=== PATIENT | female | born 1975 | race Caucasian/White ===

== ENCOUNTER 2016-12-26 16:38 | Emergency (ER) | payer OTHER ==
[~2016-12-26] VITALS: Ht 175.3 cm; Wt 101.3 kg
[~2016-12-26 16:38] MED LIST: AMPH20TA2 PO; ATOR-54 PO; CLON1TAB3 PO; INSU1.2I SQ; NRN400 PO; NVLGI SC; ZOLP10TA PO
[2016-12-26 16:54] VITALS: TEMP 36.7; Ht 175.3 cm; Wt 101.3 kg
[2016-12-26] MEDS ORDERED: SODIUM CHLORIDE 0.9% 1000ML 1,000 ML IV STA ×3 (18:18)
[2016-12-26] MEDS ORDERED: ONDANSETRON INJ 2 MG/ML 2 ML VIAL IV STA (18:18)
--- NOTE | 2016-12-26 18:40 | EMERGENCY ROOM VISIT NOTE ---
History Report prepared by Yaritza: Emma Bryant Under the Supervision of: Dr. Jason Yee D.O. First contact with patient: 18:15 Chief Complaint: HYPERGLYCEMIA Stated Complaint: HIGH SUGAR,SEVERE BACK PAIN,PASSED KIDNEY STONE Nursing Triage Summary: pt is insulin dependednt diabetic pt bsbs 684 at home, pt took 25 units of Novolog pt believes has kidney stone, pain on bilateral flanks History of Present Illness The patient is a 41 year old female who presents to the Emergency Room with complaints of improving hyperglycemia starting today. She has a history of diabetes. When she left home to come to the Emergency Room, her blood sugar level was 747. She took 25 units of NovoLog about 3 hours ago with some relief. Her blood sugar level was 548 in triage. She also complains of nausea but denies vomiting. The patient also reports chills but denies any fevers. She woke up last night with chest pain. She denies any history of pain. The patient currently denies any pain. She denies shortness of breath, abdominal pain, or any other complaints. She denies any recent changes in medication. The patient has a history of hysterectomy. She has a family history of heart disease. Her father started having cardiac problems in his 50s. He in his 60s. Source of History: patient Onset: today Position: other (global) Symptom Intensity: 747 blood sugar level at home Quality: other (hyperglycemia) Modifying Factors (Relieving): other (25 units of NovoLog with some relief) Associated Symptoms: + chills, + nausea, No SOB, No abdominal pain, No fevers, No vomiting Review of Systems See HPI for pertinent positives & negatives. A total of 10 systems reviewed and were otherwise negative. Past Medical & Surgical Medical Problems: (1) Anxiety (2) section (3) Diabetes mellitus (4) Kidney disease (5) Kidney stone Family History Cancer Diabetes mellitus Heart disease Hypertension Kidney disease Kidney stones Lung disease Seizures Social History Smoking Status: Current Every Day Smoker Alcohol Use: none Drug Use: none Housing Status: lives with family Occupation Status: unemployed Current/Historical Medications Scheduled Amphetamine-Dextroamphetamine 20MG (Adderall 20MG), 20 MG PO DAILY Atorvastatin (Lipitor), 20 MG PO HS Ciprofloxacin Hcl (Cipro), 500 MG PO BID Clonazepam (Klonopin), 1 MG PO TID Gabapentin (Gabapentin), 800 MG PO TID Insulin Aspart (Novolog), UNITS SQ TIDM Insulin Glargine (Toujeo Solostar), 40 UNITS SQ QPM Metronidazole (Flagyl), 500 MG PO TID Ondasetron Odt (Zofran Odt), 4 MG SL Q6H Zolpidem Tartrate (Ambien), 10 MG PO HS Scheduled PRN Oxycodone Immediate Rel Tab (Roxicodone Ir), 1-2 TAB PO Q4H PRN for Severe Pain Allergies Coded Allergies: Ketorolac Tromethamine (Verified Allergy, Intermediate, hives, 12/26/16) Azithromycin (Verified Allergy, Mild, 12/26/16) Buspirone (Verified Allergy, Mild, 12/26/16) Ciprofloxacin (Verified Allergy, Mild, Hives, 12/26/16) Iodinated Diagnostic Agents (Verified Allergy, Mild, ?, 12/26/16) Penicillins (Verified Allergy, Mild, 12/26/16) Amoxicillin (Verified Allergy, Unknown, HIVES, 12/26/16) BEE STING (Verified Allergy, Unknown, HIVES, 12/26/16) Cefaclor (Verified Allergy, Unknown, HIVES, 12/26/16) Dicyclomine (Verified Allergy, Unknown, hives, 12/26/16) Gabapentin (Verified Allergy, Unknown, Unknown reaction, 12/26/16) Meperidine (Verified Allergy, Unknown, HIVES, 12/26/16) Morphine (Verified Allergy, Unknown, HIVES, 12/26/16) Procaine (Verified Allergy, Unknown, Unknown reaction, 12/26/16) Tramadol (Verified Allergy, Unknown, HIVES, 12/26/16) Uncoded Allergies: TYLENOL WITH CODIENE (Allergy, Mild, 02/02/08) Physical Exam Vital Signs Date Time Temp Pulse Resp B/P Pulse Ox O2 Delivery O2 Flow Rate FiO2 12/26/16 21:52 78 18 108/64 98 12/26/16 20:03 82 20 94 12/26/16 18:45 78 20 104/69 98 Room Air 12/26/16 16:54 36.7 108 20 114/72 95 Room Air Physical Exam GENERAL: Patient is awake, alert, and in no acute distress. Patient is resting comfortably and showing no signs of anxiety EYES: The conjunctivae are clear. The pupils are round and reactive. EARS, NOSE, MOUTH AND THROAT: The nose is without any evidence of any deformity. Mucous membranes are moist tongue is midline NECK: The neck is nontender and supple. RESPIRATORY: Normal respiratory effort is noted there is no evidence of wheezing rhonchi or rales CARDIOVASCULAR: Tachycardic rate but regular rhythm, no definite murmurs noted. GASTROINTESTINAL: The abdomen is soft. Bowel sounds are present in all quadrants. Abdomen is nontender MUSCULOSKELETAL/EXTREMITIES: There is no evidence of gross deformity full range of motion is noted in the hips and shoulders SKIN: There is no obvious evidence of any rash. There are no petechiae, pallor or cyanosis noted. NEUROLOGIC: Patient is awake alert and oriented x3 strength is symmetric patellar reflexes are 2+ bilaterally Medical Decision & Procedures ER Provider Diagnostic Interpretation: X-ray results as stated below per interpretation by me and the radiologist. CHEST 1 VW FRONT-NOT PORTABLE CLINICAL HISTORY: HIGH SUGAR, ABDOMINAL PAIN/GI pain. Nausea. COMPARISON STUDY: 04/20/2016 FINDINGS: The bones soft tissues and hemidiaphragms are normal. The cardiomediastinal silhouette is normal. The lungs are clear. The pulmonary vasculature is normal. IMPRESSION: Negative chest. Electronically signed by: Luis Miguel Lundy M.D. 12/26/2016 7:35 PM Dictated Date/Time: 12/26/2016 7:[address] results as stated below per my review and radiologist interpretation: ABDOMEN AND PELVIS CT WITHOUT CONTRAST CT DOSE: 1077.42 mGycm HISTORY: Flank and abdominal pain flank pain TECHNIQUE: Multiaxial CT images of the abdomen and pelvis were performed without contrast. COMPARISON STUDY: 06/14/2016 FINDINGS: Lung bases are clear. Liver spleen and pancreas are unremarkable. Kidneys are considered negative for calcification or hydronephrosis. Bowel pattern is nonobstructive. The appendix is normal. Findings of mild chronic sigmoid diverticulosis. Minimal infiltrative change of the sigmoid at the juncture with the descending colon raising possibility of minimal superimposed acute diverticular change. No evidence for abscess collection or obstruction. Bladder is midline. Uterus is anteflexed. IMPRESSION: 1. Mild acute proximal sigmoid diverticulitis superimposed upon chronic diverticulosis of the remainder of the sigmoid. 2. No evidence for abscess collection or obstruction. 3. Nonobstructive bowel pattern. 4. Negative urinary tracts. Electronically signed by: Luis Miguel Lundy M.D. 12/26/2016 7:59 PM Dictated Date/Time: 12/26/2016 7:55 PM Laboratory Results 12/26/16 18:50 Red Blood Count 4.72, Mean Corpuscular Volume 85.4, Mean Corpuscular Hemoglobin 29.9, Mean Corpuscular Hemoglobin Concent 35.0, Mean Platelet Volume 9.9, Neutrophils (%) (Auto) 53.7, Lymphocytes (%) (Auto) 37.5, Monocytes (%) (Auto) 6.1, Eosinophils (%) (Auto) 2.4, Basophils (%) (Auto) 0.2, Neutrophils # (Auto) 4.57, Lymphocytes # (Auto) 3.19, Monocytes # (Auto) 0.52, Eosinophils # (Auto) 0.20, Basophils # (Auto) 0.02 12/26/16 18:50 Test 12/26/16 18:45 12/26/16 18:50 12/26/16 19:55 12/26/16 20:05 Urine Color YELLOW Urine Appearance CLEAR (CLEAR) Urine pH 5.0 (4.5-7.5) Urine Specific [place] 1.042 (1.000-1.030) Urine Protein NEG (NEG) Urine Glucose (UA) 3+ (NEG) Urine Ketones NEG (NEG) Urine Occult Blood NEG (NEG) Urine Nitrite NEG (NEG) Urine Bilirubin NEG (NEG) Urine Urobilinogen NEG (NEG) Urine Leukocyte Esterase NEG (NEG) Urine Opiates Screen NEG (NEG) Urine Methadone, Qualitative NEG (NEG) Urine Barbiturates NEG (NEG) Urine Phencyclidine (PCP) Level NEG (NEG) Ur Amphetamine/Methamphetamine NEG (NEG) MDMA (Ecstasy) Screen NEG (NEG) Urine Benzodiazepines Screen POS (NEG) Urine Cocaine Metabolite NEG (NEG) Urine Marijuana (THC) NEG (NEG) White Blood Count 8.51 K/uL (4.8-10.8) Red Blood Count 4.72 M/uL (4.2-5.4) Hemoglobin 14.1 g/dL (12.0-16.0) Hematocrit 40.3 % (37-47) Mean Corpuscular Volume 85.4 fL (80-100) Mean Corpuscular Hemoglobin 29.9 pg (25-34) Mean Corpuscular Hemoglobin Concent 35.0 g/dl (32-36) Platelet Count 276 K/uL (130-400) Mean Platelet Volume 9.9 fL (7.4-10.4) Neutrophils (%) (Auto) 53.7 % Lymphocytes (%) (Auto) 37.5 % Monocytes (%) (Auto) 6.1 % Eosinophils (%) (Auto) 2.4 % Basophils (%) (Auto) 0.2 % Neutrophils # (Auto) 4.57 K/uL (1.4-6.5) Lymphocytes # (Auto) 3.19 K/uL (1.2-3.4) Monocytes # (Auto) 0.52 K/uL (0.11-0.59) Eosinophils # (Auto) 0.20 K/uL (0-0.5) Basophils # (Auto) 0.02 K/uL (0-0.2) RDW Standard Deviation 40.7 fL (36.4-46.3) RDW Coefficient of Variation 13.0 % (11.5-14.5) Immature Granulocyte % (Auto) 0.1 % Immature Granulocyte # (Auto) 0.01 K/uL (0.00-0.02) Anion Gap 8.0 mmol/L (3-11) Est Creatinine Clear Calc Drug Dose 93.8 ml/min Estimated GFR () 81.0 Estimated GFR (Non- 69.9 BUN/Creatinine Ratio 9.9 (10-20) Estimated Average Glucose 246 mg/dl Hemoglobin A1c 10.2 % (4.5-5.6) Calcium Level 9.3 mg/dl (8.5-10.1) Total Bilirubin 0.2 mg/dl (0.2-1) Direct Bilirubin < 0.1 mg/dl (0-0.2) Aspartate Amino Transf (AST/SGOT) 10 U/L (15-37) Alanine Aminotransferase (ALT/SGPT) 17 U/L (12-78) Alkaline Phosphatase 117 U/L (45-117) Troponin I < 0.015 ng/ml (0-0.045) Total Protein 7.2 gm/dl (6.4-8.2) Albumin 3.3 gm/dl (3.4-5.0) Lipase 197 U/L (73-393) Beta-Hydroxybutyric Acid 0.68 mg/dL (0.2-2.81) Bedside Glucose 366 mg/dl (70-90) Venous Blood pH 7.43 (7.36-7.41) Venous Blood Partial Pressure CO2 43 mmHg (38.0-50.0) Venous Blood Partial Pressure O2 56 mmHg Venous Blood HCO3 28 meq/L Venous Blood Oxygen Saturation 89.3 % Venous Blood Base Excess 2.8 mmol/L Laboratory results per my review. Medications Administered Medications (Trade) Dose Ordered Sig/Tremaine Route Start Time Stop Time Status Last Admin Dose Admin Sodium Chloride (Nss 1000ml) 1,000 ml @ 999 mls/hr Q1H1M STAT IV 12/26/16 18:18 12/26/16 19:18 DC 12/26/16 18:54 999 MLS/HR Ondansetron HCl 4 mg 4 mg NOW STAT IV 12/26/16 18:18 12/26/16 18:20 DC 12/26/16 18:54 4 MG Sodium Chloride 1,000 ml @ 999 mls/hr Q1H1M STAT IV 12/26/16 18:18 12/26/16 19:18 DC 12/26/16 18:54 999 MLS/HR Sodium Chloride (Nss 1000ml) 1,000 ml @ 200 mls/hr Q5H STAT IV 12/26/16 18:18 12/26/16 22:09 DC 12/26/16 18:18 200 MLS/HR Metronidazole (Flagyl Tab) 500 mg NOW STAT PO 12/26/16 20:11 12/26/16 20:13 DC 12/26/16 20:30 500 MG Hydromorphone HCl (Dilaudid Inj) 1 mg NOW STAT IV 12/26/16 20:24 12/26/16 20:25 DC 12/26/16 20:30 1 MG Ondansetron HCl (ZOFRAN ODT 4MG Home Pack) 1 homepack UD ONCE PO 12/26/16 21:30 12/26/16 21:31 DC 12/26/16 21:32 1 HOMEPACK Hydromorphone HCl (Dilaudid Inj) 1 mg NOW STAT IV 12/26/16 21:16 12/26/16 21:17 DC 12/26/16 21:32 1 MG ECG Indication: other (Hyperglycemia) Rate (beats per minute): 88 Rhythm: normal sinus Findings: no ectopy, other (No acute ST segment abnormality) Comparison ECG Date: March 16, 2013 Change: no significant change ED Course 1814: The patient was evaluated in room C10. A complete history and physical examination were performed. 1817: Sodium Chloride 1000 ml @ 200 mls/hr IV, Sodium Chloride 1000 ml @ 999 mls /hr IV, Zofran Inj 4 mg IV, Sodium Chloride 1000 ml @ 999 mls/hr IV 2010: Flagyl Tab 500 mg PO 2023: Dilaudid Inj 1 mg IV 2125: Dilaudid Inj 1 mg IV 2129: Ondansetron HCl 1 homepack PO. Upon reevaluation, the patient is feeling better. I discussed the results and treatment plan with her. She verbalized agreement of the treatment plan. She was discharged home. Medical Decision Prior records/ancillary studies reviewed and summarized above. Nursing notes reviewed. The patient's history was concerning for hyperglycemia. Differential diagnosis: Etiologies such as metabolic, infection, hypo/hyperglycemia, electrolyte abnormalities, cardiac sources, intracerebral event, toxicologic, neurologic, as well as others were entertained. The patient is a 41-year-old female who presented to the emergency department for an elevated evaluation of abdominal pain back pain and elevated blood sugar. The patient states that she has had ongoing pain and noted that her blood sugar was out of control. She was treated with IV fluids in the emergency department. She was also treated with IV pain medicine IV antiemetics. I discussed patient's laboratory and radiographic studies with her. She was found have no signs of renal abnormality and did not have signs of ureteral calculi on CT but was found have a question where diverticulitis. She was started on antibiotics in the emergency department. I discussed the patient's laboratory and radiographic studies with her. She was reevaluated multiple times. She was encouraged to follow-up with her primary care physician tomorrow for further evaluation but return to the emergency department immediately if symptoms change worsen or the need arises. Impression Primary Impression: Hyperglycemia Additional Impression: Diverticulitis Scribe Attestation The scribe's documentation has been prepared under my direction and personally reviewed by me in its entirety. I confirm that the note above accurately reflects all work, treatment, procedures, and medical decision making performed by me. Departure Information Dispostion Home / Self-Care Prescriptions Oxycodone Immediate Rel Tab (ROXICODONE IR) 5 Mg Tab 1-2 TAB PO Q4H Y for Severe Pain, #15 TAB Prov: Jason Yee, DO 12/26/16 Ondasetron Odt (ZOFRAN ODT) 4 Mg Tab 4 MG SL Q6H for Nausea, #15 TAB Prov: Jason Yee, DO 12/26/16 Metronidazole (FLAGYL) 500 Mg Tab 500 MG PO TID, #30 TAB Prov: Jason Yee, DO 12/26/16 Ciprofloxacin Hcl (CIPRO) 500 Mg Tab 500 MG PO BID, #20 TAB Prov: Jason Yee, DO 12/26/16 Referrals Driss Watters MD Forms HOME CARE DOCUMENTATION FORM, IMPORTANT VISIT INFORMATION, WORK / SCHOOL INSTRUCTIONS Patient Instructions ED Diverticulitis, ED Hyperglycemia Diabetic, [facility] Additional Instructions Continue all medications as prescribed. Drink plenty clear liquids. Follow-up with your family doctor tomorrow for reevaluation. Problem Qualifiers Additional Impression: Diverticulitis Diverticulitis site: large intestine Diverticulitis bleeding: without bleeding Diverticulitis complication: without perforation or abscess Qualified Codes: K57.32 - Diverticulitis of large intestine without perforation or abscess without bleeding
[2016-12-26 19:07] LABS: BASO % 0.2 %; BASO ABS # 0.02 K/uL (0-0.2); COMPLETE YES; EOS % 2.4 %; HEMATOCRIT 40.3 % (37-47); IG% 0.1 %; LYMPH % 37.5 %; LYMPH ABS # 3.19 K/uL (1.2-3.4); MEAN CELL VOLUME 85.4 fL (80-100); MEAN CORPUSCULAR HEMOGLOBIN 29.9 pg (25-34); MEAN PLATELET VOLUME 9.9 fL (7.4-10.4); MONO % 6.1 %; NEUT % 53.7 %; PLATELET COUNT 276 K/uL (130-400); RED BLOOD COUNT 4.72 M/uL (4.2-5.4); WHITE BLOOD COUNT 8.51 K/uL (4.8-10.8)
[2016-12-26 19:30] LABS: ALKALINE PHOSPHATASE 117 U/L (45-117); ALT/SGPT 17 U/L (12-78); AST/SGOT 10 U/L (15-37); BETA-HYDROXYBUTYRATE 0.68 mg/dL (0.2-2.81); BLOOD UREA NITROGEN 10 mg/dl (7-18); BUN/CREATININE RATIO 9.9 (10-20); CALCIUM 9.3 mg/dl (8.5-10.1); CARBON DIOXIDE 27 mmol/L (21-32); CHLORIDE 99 mmol/L (98-107); GLUCOSE 413 mg/dl (70-99); POTASSIUM 4.3 mmol/L (3.5-5.1); SODIUM 134 mmol/L (136-145)
--- NOTE | 2016-12-26 19:36 | DIAGNOSTIC IMAGING REPORT ---
CHEST 1 VW FRONT-NOT PORTABLE CLINICAL HISTORY: HIGH SUGAR, ABDOMINAL PAIN/GI pain. Nausea. COMPARISON STUDY: 04/20/2016 FINDINGS: The bones soft tissues and hemidiaphragms are normal. The cardiomediastinal silhouette is normal. The lungs are clear. The pulmonary vasculature is normal. IMPRESSION: Negative chest. Electronically signed by: Luis Miguel Lundy M.D. 12/26/2016 7:35 PM Dictated Date/Time: 12/26/2016 7:34 PM
[2016-12-26 19:37] LABS: URINE APPEARANCE CLEAR (CLEAR); URINE BILIRUBIN NEG (NEG); URINE COLOR YELLOW; URINE NITRITE NEG (NEG); URINE SPECIFIC GRAVITY 1.042 (1.000-1.030); UROBILINOGEN NEG (NEG)
[2016-12-26 19:47] LABS: MANUAL MICROSCOPIC REQUIRED? NO; REVIEW REQ? NO
[2016-12-26] MEDS ORDERED: NVLG SQ (19:54)
--- NOTE | 2016-12-26 20:00 | DIAGNOSTIC IMAGING REPORT ---
ABDOMEN AND PELVIS CT WITHOUT CONTRAST CT DOSE: 1077.42 mGycm HISTORY: Flank and abdominal pain flank pain TECHNIQUE: Multiaxial CT images of the abdomen and pelvis were performed without contrast. COMPARISON STUDY: 06/14/2016 FINDINGS: Lung bases are clear. Liver spleen and pancreas are unremarkable. Kidneys are considered negative for calcification or hydronephrosis. Bowel pattern is nonobstructive. The appendix is normal. Findings of mild chronic sigmoid diverticulosis. Minimal infiltrative change of the sigmoid at the juncture with the descending colon raising possibility of minimal superimposed acute diverticular change. No evidence for abscess collection or obstruction. Bladder is midline. Uterus is anteflexed. IMPRESSION: 1. Mild acute proximal sigmoid diverticulitis superimposed upon chronic diverticulosis of the remainder of the sigmoid. 2. No evidence for abscess collection or obstruction. 3. Nonobstructive bowel pattern. 4. Negative urinary tracts. Electronically signed by: Luis Miguel Lundy M.D. 12/26/2016 7:59 PM Dictated Date/Time: 12/26/2016 7:55 PM
[2016-12-26] MEDS ORDERED: METRONIDAZOLE 250 MG TAB PO STA (20:11)
[2016-12-26] MEDS ORDERED: CIPROFLOXACIN 500 MG TAB PO STA (20:11)
[2016-12-26 20:15] LABS: BENZODIAZEPINE, URINE POS (NEG); COCAINE,URINE NEG (NEG); PHENCYCLIDINE, URINE NEG (NEG)
[2016-12-26] MEDS ORDERED: FENTANYL CITRATE INJ 50 MCG/1 ML 2 ML VIAL IV PRN (20:15)
[2016-12-26] MEDS ORDERED: HYDROmorphone INJ 1 MG/ML SYR IV STA ×2 (20:24→21:16)
[2016-12-26 20:30] LABS: VEN BLD GAS O2 SATURATION 89.3 %; VEN BLOOD GAS BASE EXCESS 2.8 mmol/L; VENOUS BLOOD GAS PCO2 43 mmHg (38.0-50.0); VENOUS BLOOD GAS PO2 56 mmHg
[2016-12-26] MEDS ORDERED: METR-162 PO (21:23)
[2016-12-26] MEDS ORDERED: OXYC1TAB3 PO (21:23)
[2016-12-26] MEDS ORDERED: ONDA4TAB10 SL (21:23)
[2016-12-26] MEDS ORDERED: CIPR-255 PO (21:23)
[2016-12-26] MEDS ORDERED: ONDANSETRON HOME PACK 4MG OD TAB PO ONE (21:30)
[2016-12-26 21:52] VITALS: BP 108/64; PULSE 78; O2SAT 98
[2016-12-27 08:02] LABS: ESTIMATED AVERAGE GLUCOSE 246 mg/dl; HA1C FLAG Normal (Normal)
[2016-12-29 10:05] LABS: HYDROXYETHYLFLURAZEPAM CONF NEGATIVE NG/ML (CUTOFF=50); HYDROXYMIDAZOLAM NEGATIVE NG/ML (CUTOFF=50); HYDROXYTRIAZOLAM CONF NEGATIVE NG/ML (CUTOFF=50); TEMAZEPAM CONF NEGATIVE NG/ML (CUTOFF=50)
== END 2016-12-26 21:55 | disposition home or self-care (01) ==
LOC: C.EDB 16:39 → C.EDC 21:55
DX: E11.65 Type 2 diabetes mellitus with hyperglycemia (principal); K57.32 Diverticulitis of large intestine without perforation or abscess without bleeding; Z90.710 Acquired absence of both cervix and uterus; F41.9 Anxiety disorder, unspecified; N28.9 Disorder of kidney and ureter, unspecified; Z87.442 Personal history of urinary calculi; Z83.3 Family history of diabetes mellitus; Z82.49 Family history of ischemic heart disease and other diseases of the circulatory system; Z82.0 Family history of epilepsy and other diseases of the nervous system; F17.210 Nicotine dependence, cigarettes, uncomplicated; Z79.4 Long term (current) use of insulin; Z79.899 Other long term (current) drug therapy

== ENCOUNTER 2017-01-07 21:00 | Emergency (ER) | payer OTHER ==
[~2017-01-07] VITALS: Ht 175.3 cm; Wt 102.0 kg
[~2017-01-07 21:00] MED LIST changes: +CIPR-255 PO; +NVLG SQ; -NVLGI SC; +ONDA4TAB10 SL; +OXYC1TAB3 PO
[2017-01-07 21:11] VITALS: TEMP 36.7; Ht 175.3 cm; Wt 102.0 kg
[2017-01-07] MEDS ORDERED: FENTANYL CITRATE INJ 50 MCG/1 ML 2 ML VIAL IV STA (22:15)
[2017-01-07] MEDS ORDERED: SODIUM CHLORIDE 0.9% 1000ML 1,000 ML IV STA ×2 (22:15)
[2017-01-07] MEDS ORDERED: HYDROmorphone INJ 0.5 MG/0.5 ML SYR IV STA ×2 (22:18→23:26)
[2017-01-07 22:43] VITALS: BP 101/68; O2SAT 94; O2SAT 96
[2017-01-07 22:45] VITALS: PULSE 74
[2017-01-07 23:00] LABS: URINE APPEARANCE CLEAR (CLEAR); URINE BILIRUBIN NEG (NEG); URINE COLOR YELLOW; URINE NITRITE NEG (NEG); URINE SPECIFIC GRAVITY 1.003 (1.000-1.030); UROBILINOGEN NEG (NEG); ZZUR CULT IF INDIC CLEAN CATCH NO
[2017-01-07 23:02] LABS: BASO % 0.2 %; BASO ABS # 0.02 K/uL (0-0.2); COMPLETE YES; EOS % 3.4 %; HEMATOCRIT 39.5 % (37-47); IG% 0.2 %; LYMPH ABS # 3.34 K/uL (1.2-3.4); MEAN CORPUSCULAR HEMOGLOBIN 30.3 pg (25-34); MEAN CORPUSCULAR HGB CONC 34.4 g/dl (32-36); MEAN PLATELET VOLUME 10.1 fL (7.4-10.4); MONO % 5.7 %; NEUT % 51.5 %; PLATELET COUNT 250 K/uL (130-400); RED BLOOD COUNT 4.49 M/uL (4.2-5.4); WHITE BLOOD COUNT 8.57 K/uL (4.8-10.8)
--- NOTE | 2017-01-07 23:03 | DIAGNOSTIC IMAGING REPORT ---
CT SCAN OF THE ABDOMEN AND PELVIS WITHOUT CONTRAST CLINICAL HISTORY: Left lower quadrant abdominal pain COMPARISON STUDY: 12/26/2016 TECHNIQUE: CT scan of the abdomen and pelvis was performed from the lung bases to the proximal femurs. Images are reviewed in the axial, sagittal, and coronal planes. IV contrast was not administered for this examination. CT DOSE: 1082.27 mGy.cm FINDINGS: Lower chest: There are minimal dependent atelectatic changes. Liver: The unenhanced liver is normal in size, contour, and attenuation. There is no intrahepatic biliary ductal dilatation. Gallbladder: Contracted Spleen: Normal in size and attenuation. Pancreas: Unremarkable. Adrenal glands: Unremarkable. Kidneys: No renal, ureteral, or bladder calculi are visualized. Bowel: There is colonic diverticulosis. There are no acute peridiverticular inflammatory changes. There is moderate stool throughout the colon. There is no evidence of acute appendicitis. Peritoneum: There is no intraperitoneal free air or abdominal ascites. Vasculature: The abdominal aorta is normal in course and caliber. Adenopathy: None. Pelvic viscera: The bladder, and pelvic viscera are unremarkable. Skeletal structures: No destructive osseous lesions are seen. IMPRESSION: 1. No evidence of bowel obstruction. No evidence of free air 2. No evidence of acute appendicitis. No evidence of acute diverticulitis 3. No renal, ureteral, or bladder calculi identified Electronically signed by: Ghanshyam Dominguez M.D. 01/07/2017 11:00 PM Dictated Date/Time: 01/07/2017 10:57 PM
[2017-01-07 23:08] LABS: MANUAL MICROSCOPIC REQUIRED? NO; REVIEW REQ? NO
[2017-01-07 23:10] LABS: PREG INTERNAL NEGATIVE QC NEG CLEAR BACKGROUND; PREG INTERNAL POSITIVE QC POS CONTROL LINE
[2017-01-07 23:31] LABS: ALKALINE PHOSPHATASE 124 U/L (45-117); ALT/SGPT 14 U/L (12-78); AST/SGOT 6 U/L (15-37); BLOOD UREA NITROGEN 10 mg/dl (7-18); BUN/CREATININE RATIO 9.5 (10-20); CALCIUM 8.7 mg/dl (8.5-10.1); CARBON DIOXIDE 28 mmol/L (21-32); CHLORIDE 100 mmol/L (98-107); GLUCOSE 407 mg/dl (70-99); MAGNESIUM 2.2 mg/dl (1.8-2.4); POTASSIUM 4.5 mmol/L (3.5-5.1); SODIUM 138 mmol/L (136-145)
[2017-01-07] MEDS ORDERED: NovoLIN-R INSULIN PER UNIT CHARGE IV STA (23:33)
[2017-01-08] MEDS ORDERED: OXYCODONE IR HOME PACK PO ONE
--- NOTE | 2017-01-08 03:36 | EMERGENCY ROOM VISIT NOTE ---
History First contact with patient: 22:14 Chief Complaint: ABDOMINAL PAIN Stated Complaint: DIVERTICULITIS, ABDOMINAL PAIN, HIGH SUGAR Nursing Triage Summary: Pt reports she was diagnosed with Diverticulits. Was on abx for 1 week. "The pain has just gotten unbearable. They told me to come back in if that happened. " c/o generalized abd pain History of Present Illness The patient is a 41 year old female who presents to the Emergency Room with complaints of left lower abdominal pain for the past few days he was on antibiotics for diverticulitis that got better and then worse again. Patient describes the pain as aching, ranging in severity 9 out of 10. Nothing makes it better or worse. Patient states her family doctor advised her to go the ER if her symptoms returned. Patient is from the [facility]. Patient plans of nausea without vomiting or diarrhea. Patient denies chest pain, dyspnea, fever, chills, cough, congestion, urinary symptoms. Patient states she is also has elevated blood sugar which is not new for her. No recent colonoscopy. Review of Systems See HPI for pertinent positives & negatives. A total of 10 systems reviewed and were otherwise negative. Past Medical/Surgical History Medical Problems: (1) Anxiety (2) section (3) Diabetes mellitus (4) Kidney disease (5) Kidney stone Family History Cancer Diabetes mellitus Heart disease Hypertension Kidney disease Kidney stones Lung disease Seizures Social History Smoking Status: Current Every Day Smoker Alcohol Use: none Drug Use: none Housing Status: lives with family Occupation Status: unemployed Current/Historical Medications Scheduled Amphetamine-Dextroamphetamine 20MG (Adderall 20MG), 20 MG PO DAILY Atorvastatin (Lipitor), 20 MG PO HS Ciprofloxacin Hcl (Cipro), 500 MG PO BID Clonazepam (Klonopin), 1 MG PO TID Gabapentin (Gabapentin), 800 MG PO TID Insulin Aspart (Novolog), UNITS SQ TIDM Insulin Glargine (Toujeo Solostar), 40 UNITS SQ QPM Ondasetron Odt (Zofran Odt), 4 MG SL Q6H Zolpidem Tartrate (Ambien), 10 MG PO HS Scheduled PRN Oxycodone Immediate Rel Tab (Roxicodone Ir), 1-2 TAB PO Q4H PRN for Severe Pain Allergies Coded Allergies: Ketorolac Tromethamine (Verified Allergy, Intermediate, hives, 12/26/16) Azithromycin (Verified Allergy, Mild, 12/26/16) Buspirone (Verified Allergy, Mild, 12/26/16) Ciprofloxacin (Verified Allergy, Mild, Hives, 12/26/16) Iodinated Diagnostic Agents (Verified Allergy, Mild, ?, 12/26/16) Penicillins (Verified Allergy, Mild, 12/26/16) Amoxicillin (Verified Allergy, Unknown, HIVES, 12/26/16) BEE STING (Verified Allergy, Unknown, HIVES, 12/26/16) Cefaclor (Verified Allergy, Unknown, HIVES, 12/26/16) Dicyclomine (Verified Allergy, Unknown, hives, 12/26/16) Gabapentin (Verified Allergy, Unknown, Unknown reaction, 12/26/16) Meperidine (Verified Allergy, Unknown, HIVES, 12/26/16) Morphine (Verified Allergy, Unknown, HIVES, 12/26/16) Procaine (Verified Allergy, Unknown, Unknown reaction, 12/26/16) Tramadol (Verified Allergy, Unknown, HIVES, 12/26/16) Uncoded Allergies: TYLENOL WITH CODIENE (Allergy, Mild, 02/02/08) Physical Exam Vital Signs Date Time Temp Pulse Resp B/P Pulse Ox O2 Delivery O2 Flow Rate FiO2 01/07/17 22:45 74 01/07/17 22:43 76 16 101/68 94 Room Air 01/07/17 22:43 96 Room Air 01/07/17 21:11 36.7 87 18 141/87 96 Room Air Pain Rating (0-10): 9.0 Physical Exam VITALS: Vitals are noted on the nurse's note and reviewed by myself. Vital signs stable. GENERAL: White female, in no acute distress, nondiaphoretic, well-developed well -nourished. SKIN: The skin was without rashes, erythema, edema, or bruising. There is no tenting of the skin. Capillary reflex less than 2 seconds. HEAD: Normocephalic atraumatic. EARS: External auditory canals clear, tympanic membranes pearly aguilar without erythema or effusion bilaterally. EYES: Pupils equal round and reactive to light and accommodation. Conjunctivae without injection, sclerae without icterus. Extraocular movements intact. NOSE: Patent, turbinates without inflammation or discharge. MOUTH: Mucous membranes moist. Pharynx without erythema or exudate. Uvula midline. Airway patent. Tongue does not deviate. NECK: Supple without nuchal rigidity. No lymphadenopathy. No thyromegaly. Cervical spine is nontender. No JVD. HEART: Regular rate and rhythm without murmurs gallops or rubs. LUNGS: Clear to auscultation bilaterally without wheezes, rales or rhonchi. No dullness to percussion. No retractions or accessory muscle use. ABDOMEN: Positive bowel sounds x 4. Normal tympanic percussion. Soft, protuberant, obese, tender to palpation lower abdomen, no CVA tenderness, without masses or organomegaly. Dorsey sign negative. No guarding or rebound tenderness. MUSCULOSKELETAL: No muscle atrophy, erythema, or edema noted. NEURO: Patient was alert and oriented to person place and time. Normal sensation to light and sharp touch. No focal neurological deficits. Medical Decision & Procedures Laboratory Results 01/07/17 22:40 Red Blood Count 4.49, Mean Corpuscular Volume 88.0, Mean Corpuscular Hemoglobin 30.3, Mean Corpuscular Hemoglobin Concent 34.4, Mean Platelet Volume 10.1, Neutrophils (%) (Auto) 51.5, Lymphocytes (%) (Auto) 39.0, Monocytes (%) (Auto) 5.7, Eosinophils (%) (Auto) 3.4, Basophils (%) (Auto) 0.2, Neutrophils # (Auto) 4.41, Lymphocytes # (Auto) 3.34, Monocytes # (Auto) 0.49, Eosinophils # (Auto) 0.29, Basophils # (Auto) 0.02 01/07/17 22:40 Test 01/07/17 00:00 01/07/17 22:37 01/07/17 22:40 Urine Color YELLOW Urine Appearance CLEAR (CLEAR) Urine pH 7.0 (4.5-7.5) Urine Specific [place] 1.003 (1.000-1.030) Urine Protein NEG (NEG) Urine Glucose (UA) NEG (NEG) Urine Ketones NEG (NEG) Urine Occult Blood NEG (NEG) Urine Nitrite NEG (NEG) Urine Bilirubin NEG (NEG) Urine Urobilinogen NEG (NEG) Urine Leukocyte Esterase NEG (NEG) Bedside Lactic Acid Venous 1.55 mmol/L (0.90-1.70) White Blood Count 8.57 K/uL (4.8-10.8) Red Blood Count 4.49 M/uL (4.2-5.4) Hemoglobin 13.6 g/dL (12.0-16.0) Hematocrit 39.5 % (37-47) Mean Corpuscular Volume 88.0 fL (80-100) Mean Corpuscular Hemoglobin 30.3 pg (25-34) Mean Corpuscular Hemoglobin Concent 34.4 g/dl (32-36) Platelet Count 250 K/uL (130-400) Mean Platelet Volume 10.1 fL (7.4-10.4) Neutrophils (%) (Auto) 51.5 % Lymphocytes (%) (Auto) 39.0 % Monocytes (%) (Auto) 5.7 % Eosinophils (%) (Auto) 3.4 % Basophils (%) (Auto) 0.2 % Neutrophils # (Auto) 4.41 K/uL (1.4-6.5) Lymphocytes # (Auto) 3.34 K/uL (1.2-3.4) Monocytes # (Auto) 0.49 K/uL (0.11-0.59) Eosinophils # (Auto) 0.29 K/uL (0-0.5) Basophils # (Auto) 0.02 K/uL (0-0.2) RDW Standard Deviation 41.4 fL (36.4-46.3) RDW Coefficient of Variation 12.9 % (11.5-14.5) Immature Granulocyte % (Auto) 0.2 % Immature Granulocyte # (Auto) 0.02 K/uL (0.00-0.02) Anion Gap 10.0 mmol/L (3-11) Est Creatinine Clear Calc Drug Dose 94.1 ml/min Estimated GFR () 81.0 Estimated GFR (Non- 69.9 BUN/Creatinine Ratio 9.5 (10-20) Calcium Level 8.7 mg/dl (8.5-10.1) Magnesium Level 2.2 mg/dl (1.8-2.4) Total Bilirubin 0.2 mg/dl (0.2-1) Direct Bilirubin < 0.1 mg/dl (0-0.2) Aspartate Amino Transf (AST/SGOT) 6 U/L (15-37) Alanine Aminotransferase (ALT/SGPT) 14 U/L (12-78) Alkaline Phosphatase 124 U/L (45-117) Total Protein 6.8 gm/dl (6.4-8.2) Albumin 3.1 gm/dl (3.4-5.0) Lipase 178 U/L (73-393) Beta-Hydroxybutyric Acid 0.80 mg/dL (0.2-2.81) Human Chorionic Gonadotropin, Qual NEG (NEG) Medications Administered Medications (Trade) Dose Ordered Sig/Tremaine Route Start Time Stop Time Status Last Admin Dose Admin Sodium Chloride (Nss 1000ml) 1,000 ml @ 999 mls/hr Q1H1M STAT IV 01/07/17 22:15 01/07/17 23:15 DC 01/07/17 22:37 999 MLS/HR Hydromorphone HCl (Dilaudid Inj) 0.5 mg NOW STAT IV 01/07/17 22:18 01/07/17 22:19 DC 01/07/17 22:37 0.5 MG Hydromorphone HCl (Dilaudid Inj) 0.5 mg NOW STAT IV 01/07/17 23:26 01/07/17 23:28 DC 01/07/17 23:32 0.5 MG Insulin Human Regular (novoLIN-R U-100 PER UNIT) 10 units NOW STAT IV 01/07/17 23:33 01/07/17 23:34 DC 01/07/17 23:40 10 UNITS Oxycodone HCl (Roxicodone Immediate Rel 5MG Home Pack) 1 homepack UD ONCE PO 01/08/17 00:00 01/08/17 00:01 DC 01/08/17 00:03 1 HOMEPACK ED Course Prior records/ancillary studies reviewed. Triage Nursing notes reviewed. The patient's history was concerning for abdominal pain. Differential diagnosis: Etiologies such as appendicitis, drug-seeking behavior, diverticulitis, PUD, biliary pathology, UTI, pancreatitis, obstruction, mesenteric ischemia, aortic pathology, infections, inflammatory bowel disease, renal colic, as well as others were entertained. Physical examination findings: As above. ER treatment provided: IV fluids, insulin, Dilaudid On reassessment the patient felt better. Diagnostics interpreted by me: The labs revealed glycemia without DKA. No leukocytosis Imaging studies: CT DOSE: 1082.27 mGy.cm FINDINGS: Lower chest: There are minimal dependent atelectatic changes. Liver: The unenhanced liver is normal in size, contour, and attenuation. There is no intrahepatic biliary ductal dilatation. Gallbladder: Contracted Spleen: Normal in size and attenuation. Pancreas: Unremarkable. Adrenal glands: Unremarkable. Kidneys: No renal, ureteral, or bladder calculi are visualized. Bowel: There is colonic diverticulosis. There are no acute peridiverticular inflammatory changes. There is moderate stool throughout the colon. There is no evidence of acute appendicitis. Peritoneum: There is no intraperitoneal free air or abdominal ascites. Vasculature: The abdominal aorta is normal in course and caliber. Adenopathy: None. Pelvic viscera: The bladder, and pelvic viscera are unremarkable. Skeletal structures: No destructive osseous lesions are seen. IMPRESSION: 1. No evidence of bowel obstruction. No evidence of free air 2. No evidence of acute appendicitis. No evidence of acute diverticulitis 3. No renal, ureteral, or bladder calculi identified Electronically signed by: Ghanshyam Dominguez M.D. Exam and history seem consistent with abdominal pain with unclear etiology. Patient is a poorly controlled diabetic. Patient is demanding to leave and did not want her blood sugar rechecked after the insulin. Patient is requesting some pain meds to go home with and she was given a home pack. Shortly after that she started becoming belligerent with nursing and demanding a prescription for narcotics. She was informed she is not getting any written prescription. She was yelling and screaming at nursing. She ripped out her IV and strawhat blocking operator leads along with her blood pressure cuff. She then threatened to contact the [employer] and report myself and staff as she was displeased with her care. Patient was informed that she had an unremarkable CT scan. There was no diverticulitis. She has a long-standing history of poorly controlled diabetes. She refused to have her blood sugar rechecked here as she wanted to go. My nurse supervisor/port director, Nano, spoke to the patient. She was belligerent to her and security was summoned. Security escorted her out of the ER. Patient then high- fived her friend that was with her and started to laugh about the whole situation per security. [facility] was contacted and states that she is on there no narcotic list as she was caught selling narcotics outside the ER and is a frequent visitor to the ER for pain complaints with unremarkable workups. There is concerns for drug-seeking behavior. I am concerned this person is displaying. Drug-seeking behavior. She has multiple prescriptions in the database. I recommend that this patient go on the no narcotic list. My supervising attending was made aware this. he is agreeable to this By the evaluation outlined above emergent etiologies such as appendicitis, diverticulitis, PUD, biliary pathology, UTI, pancreatitis, obstruction, mesenteric ischemia, aortic pathology, infections, inflammatory bowel disease, renal colic, as well as others were deemed relatively unlikely. The pt informed about the findings as listed above. All questions were answered and pt was not pleased with the treatment. Return instructions were outlined and the patient was discharged in stable condition. Outpatient prescription management: homepack OxyIR Referral: The patient was referred back to their primary care physician for follow-up in 2 to 3 days for a recheck of the current condition. case reviewed with my Attending Medical Decision As above [place] Drug Monitoring Program Search Results: patient reviewed within database, see additional documentation (multiple prescriptions) Impression Primary Impression: Hyperglycemia due to type 2 diabetes mellitus Additional Impression: Abdominal pain, left lower quadrant Departure Information Dispostion Home / Self-Care Condition GOOD Forms Call Back Authorization, HOME CARE DOCUMENTATION FORM, IMPORTANT VISIT INFORMATION Patient Instructions Hyperglycemia, Abdominal Pain - [facility], My [facility] Additional Instructions Monitor your blood sugars. It was high today. DO NOT drive, drink alcohol, operate machinery, or perform dangerous activities today. You were given medications in the ER that can affect your ability to safely function or operate a vehicle. Acetaminophen(Tylenol) may be used for fever or pain. Use 1000mg every six hours as needed. Avoid using more than 3000mg in a 24 hour period. Oxycodone (OxyIR) 5mg: Take 1-2 pills every four hours for breakthrough pain. Avoid alcohol, operating machinery or dangerous equipment, working on ladders or roofs, DRIVING, or situations where being under the influence may be dangerous. It is recommended to use an [id number] stool softener such as Colace, 100mg twice daily while taking this medication to avoid constipation. Rest and drink plenty of fluids as tolerated. Slow sips of water or sports drinks are recommended instead of large amounts all at once. Continue current medications. Once your stomach is settled start with a clear liquid diet (jello, soup broth, etc.) and then advance as tolerated. You should avoid full, heavy meals for about 24 hrs from the time your symptoms resolved. Return to the ER immediately for worsening or persistent abdominal pain, vomiting, fevers, chest pains, difficulty breathing, black or bloody stools, worsening of your condition, or as needed. Follow up with your primary physician in 24 hours for a recheck of your current condition. Problem Qualifiers Primary Impression: Hyperglycemia due to type 2 diabetes mellitus Diabetes mellitus rat exterminator insulin use: with rat exterminator use Qualified Codes: E11.65 - Type 2 diabetes mellitus with hyperglycemia; Z79.4 - intermediate ( current) use of insulin
== END 2017-01-08 00:27 | disposition home or self-care (01) ==
LOC: C.EDB 21:01 → C.EDC 01-08 00:27
DX: E11.65 Type 2 diabetes mellitus with hyperglycemia (principal); R10.32 Left lower quadrant pain; F41.9 Anxiety disorder, unspecified; N18.9 Chronic kidney disease, unspecified; F17.200 Nicotine dependence, unspecified, uncomplicated; Z87.442 Personal history of urinary calculi; Z79.4 Long term (current) use of insulin; Z79.899 Other long term (current) drug therapy; Z88.0 Allergy status to penicillin; Z88.1 Allergy status to other antibiotic agents; Z88.2 Allergy status to sulfonamides; Z88.5 Allergy status to narcotic agent; Z88.8 Allergy status to other drugs, medicaments and biological substances; Z80.9 Family history of malignant neoplasm, unspecified; Z83.3 Family history of diabetes mellitus; Z82.49 Family history of ischemic heart disease and other diseases of the circulatory system; Z84.1 Family history of disorders of kidney and ureter; Z82.0 Family history of epilepsy and other diseases of the nervous system

== ENCOUNTER 2017-12-24 01:24 | Emergency (ER) | payer OTHER ==
[~2017-12-24] VITALS: Ht 177.8 cm; Wt 96.1 kg
[~2017-12-24 01:24] MED LIST changes: -ONDA4TAB10 SL; -OXYC1TAB3 PO
[2017-12-24 01:29] VITALS: BP 141/99; PULSE 80; TEMP 36.4; O2SAT 98; Ht 177.8 cm; Wt 96.1 kg
[2017-12-24] MEDS ORDERED: LIDODERM (LIDOCAINE) PATCH 5% TD STA (01:51)
[2017-12-24] MEDS ORDERED: LDDP5 TD (01:55)
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
[2017-12-24] MEDS ORDERED: NRN800 PO (01:58)
== END 2017-12-24 02:03 | disposition left against medical advice (07) ==
LOC: C.EDB 01:26 → C.EDA 02:03
DX: M54.5 Low back pain (principal); G89.29 Other chronic pain; F41.9 Anxiety disorder, unspecified; E11.9 Type 2 diabetes mellitus without complications; N28.9 Disorder of kidney and ureter, unspecified; Z87.442 Personal history of urinary calculi; Z80.9 Family history of malignant neoplasm, unspecified; Z83.3 Family history of diabetes mellitus; Z82.49 Family history of ischemic heart disease and other diseases of the circulatory system; Z84.1 Family history of disorders of kidney and ureter; Z83.6 Family history of other diseases of the respiratory system; F17.210 Nicotine dependence, cigarettes, uncomplicated; Z79.4 Long term (current) use of insulin; Z79.899 Other long term (current) drug therapy